=== PATIENT | male | born 1960 | race Hispanic/Latino ===

== ENCOUNTER 2017-12-07 06:04 | Day surgery (SDC) | payer OTHER ==
[2017-12-07] MEDS ORDERED: ECOTRIN PO NR (06:30)
[2017-12-07] MEDS ORDERED: NACL 0.9% 500 ML 500 ML IV SCH (07:00)
[2017-12-07 07:07] LABS: Basophils % (Auto) 0.7 % (0.0-1.8); Eosinophils # (Auto) 0.3 K/mm3 (0.0-0.4); Hematocrit 38.6 % (35.5-45.6); Hemoglobin 13.6 gm/dl (11.8-15.2); Lymphocytes # (Auto) 1.4 K/mm3 (1.2-5.4); Lymphocytes % (Auto) 24.3 % (13.4-35.0); Mean Corpuscular HGB Conc 35 % (32-34); Mean Corpuscular Hemoglobin 31 pg (28-32); Mean Corpuscular Volume 89 fl (84-94); Monocytes # (Auto) 0.6 K/mm3 (0.0-0.8); Monocytes % (Auto) 10.9 % (0.0-7.3); Platelet Count 165 K/mm3 (140-440); Red Blood Count 4.34 M/mm3 (3.65-5.03); Red Cell Distribution Width 12.9 % (13.2-15.2)
[2017-12-07 07:24] LABS: INR 0.93 (0.87-1.13)
[2017-12-07 08:13] LABS: BUN/Creatinine Ratio 27; Blood Urea Nitrogen 16 mg/dL (9-20); Calcium 9.3 mg/dL (8.4-10.2); Hemolysis Index 42
[2017-12-07] MEDS ORDERED: VERSED ONE (08:27)
[2017-12-07] MEDS ORDERED: SUBLIMAZE ONE (08:27)
[2017-12-07] MEDS ORDERED: HEPARIN/NS 5000 UNIT/500ML(CATH LAB) 1,000 ML IR ONE (08:27)
[2017-12-07] MEDS ORDERED: HEPARIN 10,000 UNITS/10 ML ONE (08:27)
[2017-12-07] MEDS ORDERED: NITROGLYCERIN SYRINGE 3 ML ONE (08:28)
[2017-12-07] MEDS ORDERED: XYLOCAINE 2% INFILTRATI ONE (08:28)
[2017-12-07] MEDS ORDERED: CALAN ONE (08:28)
--- NOTE | 2017-12-07 09:55 | Cardiac Catherization Report ---
CARDIAC CATHETERIZATION REFERRING PHYSICIAN: Samuel Jimenez MD INDICATION FOR PROCEDURE: The patient is a pleasant 57-year-old gentleman, history of multiple PCIs, abnormal treadmill stress test at [facility], recurrent chest pain despite optimal medical therapy, referred for left heart catheterization. Risks, benefits, and potential alternatives were explained at length prior to obtaining informed consent. PROCEDURE: The patient was brought to catheterization lab in postabsorptive state, prepped and draped in sterile fashion. Kan's test in right hand was normal. A 2 mL of 2% lidocaine used to anesthetize the right wrist. A standard 6-Khmer hydrophilic sheath used to cannulate the right radial artery via modified Seldinger technique. All exchanges performed to exchange the J-tip guidewire. JL3.5 catheter used to engage the left main. No dampening or ventricularization. Cineangiography performed in all projections. JR4 catheter was used to cross the aortic valve under fluoroscopic guidance. Left ventriculography performed in 30 FAJARDO and 30 SPANISH projections via hand injections, catheter flushed. Manual pullback performed with continuous pressure monitoring. Catheter used to engage the right coronary. No dampening or ventricularization. Cineangiography performed in all projections. Next, catheter used to engage the right coronary. No dampening or ventricularization. Cineangiography performed in all projections. Catheter exchanged for a pigtail catheter. We did a root aortogram due to recurrent chest pain and coronary findings. Root aortography was done in the SPANISH projection with power injector. Next, catheter removed from the body of the wire, sheath removed. Manual pressure used to achieve hemostasis. I directly supervised the administration of moderate sedation from 9:05-9:30 a.m. DATA: Aortic pressure is 120/80, LV pressure is 120, LVP of 15 mmHg. Left ventriculography revealed normal systolic performance, estimated ejection fraction of 55-60%. No evidence of aortic stenosis. The patient remained in sinus rhythm/sinus chuck throughout the procedure. 40 mL of Isovue used. CORONARY ANATOMY: This is a right dominant system. Left main without significant disease, bifurcates left anterior descending and left circumflex. Left circumflex is a moderate size vessel, courses AV groove. Scattered luminal irregularities. There is a 20-30% OM1 stenosis, nonobstructive. LAD with stent in the proximal/mid segment widely patent. No significant disease identified. RCA is a moderate sized vessel, courses AV groove, distally bifurcates in the posterior descending and posterolateral branches. Proximal RCA stent is widely patent. No significant disease noted, otherwise. Root aortography reveals normal contour, no evidence of dissection or penetrating aortic ulcer. CONCLUSIONS: 1. No angiographic evidence of significant epicardial coronary disease in this right dominant system. 2. Patent stents in the LAD and right coronary noted. 3. 20-30% stenosis of OM1, nonobstructive. 4. Normal left ventricular systolic performance with estimated ejection fraction of 55-60%. 5. No evidence of aortic stenosis. 6. No evidence of dysrhythmia. 7. Root aortography reveals no evidence of dissection, penetrating ulcer or aortic insufficiency. At this point, recommend aggressive risk factor modification. Primary and secondary prevention measures, standard radial care. We will check a V/Q scan due to recurrent chest pain. FOLLOWUP: Follow up with me in the office. Results of the procedure explained to the patient and family. All questions and concerns were addressed. JOB# [id number] SBCarlos/NTS
--- NOTE | 2017-12-07 11:03 | XRay Report ---
AP CHEST: HISTORY: chest pain AP view of the chest demonstrates a normal mediastinal and cardiac contour with clear lungs and normal bony and soft tissue structures. IMPRESSION: Unremarkable AP chest.
--- NOTE | 2017-12-07 11:06 | Nuclear Medicine Report ---
LUNG SCAN, VENTILATION AND PERFUSION: History: Chest pain. Technique: 5mci of Tc99m MAA was infused for the perfusion images. 15mci XE 133 gas was inhaled for the ventilatory images. Correlation is made with a chest x-ray dated 12/07/17. Findings: Inhalation of Xenon gas demonstrates a normal distribution of the activity throughout both lungs. The wash out phases show no focal retention of activity. After injection of Technetium 99m macroaggregated albumin gamma camera imaging of the lungs in multiple projections demonstrates normal pulmonary contours with a homogeneous distribution of activity. No focal areas of perfusion deficiency are identified. IMPRESSION: Low probability for pulmonary embolus.
[2017-12-07 13:31] VITALS: BP 135/77
--- NOTE | 2017-12-07 14:53 | Short Stay Summary ---
Short Stay Documentation Date of service: 12/07/17 - History H&P: obtained from office - Allergies and Medications Current Medications: Allergies No Known Allergies Allergy (Unverified 12/07/17 06:05) Home Medications Medication Instructions Recorded Confirmed Last Taken Type Aspirin [Aspirin TAB] 325 mg PO QDAY 12/07/17 12/07/17 12/06/17 History FLUoxetine [PROzac] 20 mg PO QDAY 12/07/17 12/07/17 12/06/17 History Folic Acid [Folvite] 1 mg PO QDAY 12/07/17 12/07/17 12/06/17 History Losartan Potassium [Cozaar] 50 mg PO DAILY 12/07/17 12/07/17 12/06/17 History [place]-3 Fatty Acids/Fish Oil [Fish 1 each PO DAILY 12/07/17 12/07/17 12/06/17 History Oil] Simvastatin [Zocor TAB] 40 mg PO QHS 12/07/17 12/07/17 12/06/17 History Ubidecarenone [Coq-10] 100 mg PO DAILY 12/07/17 12/07/17 12/06/17 History - Brief post op/procedure progress note Date of procedure: 12/07/17 Pre-op diagnosis: CAD Post-op diagnosis: same Procedure: C - see dictated cath report Anesthesia: local Estimated blood loss: none Condition: stable - Disposition Condition at discharge: Good Disposition: [id number] TO HOME OR SELFCARE - Discharge Diagnoses (1) CAD (coronary artery disease) Status: Chronic (2) Stented coronary artery Status: Chronic Short Stay Discharge Plan Activity: advance as tolerated Diet: low cholesterol Wound: open to air, keep clean and dry, per your surgeon's advice Follow up with: RENATE VALVERDE MD [Other] - 7 Days Forms: CardCath PCI D/C Instructions
== END 2017-12-07 12:45 | disposition home or self-care (01) ==
LOC: CATHLABREC 06:04
PROVIDERS: ATTEND Internal Medicine
DX: I25.10 Atherosclerotic heart disease of native coronary artery without angina pectoris (principal); Z79.82 Long term (current) use of aspirin; Z79.899 Other long term (current) drug therapy; Z72.89 Other problems related to lifestyle; Z95.5 Presence of coronary angioplasty implant and graft; Z87.891 Personal history of nicotine dependence
CPT/HCPCS: 36415; 71045; 78582; 80048; 85025; 85610; 85730; 93005; 93010; 93458; 93567; 99156; 99157; A9540; A9558; C1894; J1644; J2250; J3010; J7040; Q9967